=== PATIENT | male | born 1990 | race Two or more races ===

== ENCOUNTER 2023-07-09 14:42 | Emergency (ER) | payer OTHER ==
[~2023-07-09] VITALS: Ht 172.7 cm; Wt 51.5 kg
[2023-07-09] MEDS ORDERED: CLIN300C70 PO (17:08)
[2023-07-09 17:55] VITALS: BP 117/68; PULSE 74; RESP 16; O2SAT 94
== END 2023-07-09 17:59 | disposition home or self-care (01) ==
LOC: ER 14:42
DX: L03.211 Cellulitis of face (principal)
CPT/HCPCS: 70486